=== PATIENT | female | born 1985 | race African-American/Black ===

== ENCOUNTER 2018-09-03 02:15 | Emergency (ER) | payer OTHER ==
[~2018-09-03] VITALS: Ht 167.6 cm; Wt 86.2 kg
[~2018-09-03 02:15] MED LIST: ALBUTEROL2.5 MG/0.1 INH; APAP/CODEINE ELI5 M1 OR; MEDROL DOSPAK21 TA1 PO; VENTOLIN HFA 1818 GM; VENTOLIN HFA 1818 GM INH; ZPAK PO
[2018-09-03] MEDS ORDERED: IRON325 PO (02:23)
[2018-09-03 03:23] LABS: URINE BILIRUBIN NEGATIVE (Negative); URINE BLOOD NEGATIVE (Negative); URINE CLARITY CLEAR; URINE COLOR YELLOW; URINE GLUCOSE-RANDOM* NEGATIVE (Negative); URINE KETONES NEGATIVE (Negative); URINE LEUKOCYTES-REFLEX NEGATIVE (Negative); URINE NITRITE-REFLEX NEGATIVE (Negative); URINE PROTEIN (DIPSTICK) NEGATIVE (Negative); URINE SPECIFIC GRAVITY 1.025 (1.005-1.035); URINE UROBILINOGEN 0.2 E.U./dl (0.2-1.0)
[2018-09-03 03:27] LABS: ABSOLUTE NEUTROPHILS 3.1 thou/uL (1.4-8.2); BASOPHILS 0.8 % (0.0-2.0); EOSINOPHILS 4.4 % (0.0-3.0); HEMATOCRIT 34.8 % (37.0-47.0); HEMOGLOBIN 11.2 gm/dL (12.0-15.0); MCH 28.3 pg (26.0-34.0); MCHC 32.2 g/dL (28.0-37.0); MCV 87.9 fL (80.0-100.0); MONOCYTES 8.3 % (1.0-8.0); PLATELET COUNT 208 thou/uL (150-400); POLYS 47.5 % (36.0-66.0); RBC 3.96 mil/uL (4.20-5.00); RDW 14.2 % (10.5-14.5); WBC 6.6 thou/uL (4.0-11.0)
[2018-09-03 03:29] LABS: ANION GAP 8 mmol/L (7-16); BUN 8 mg/dL (7-18); CALCIUM 8.6 mg/dL (8.5-10.1); CHLORIDE 106 mmol/L (98-107); CO2 26 mmol/L (21-32); CREATININE 0.8 mg/dL (0.6-1.0); GLUCOSE 78 mg/dL (74-106); POTASSIUM 3.5 mmol/L (3.5-5.1); SODIUM 140 mmol/L (136-145)
[2018-09-03 03:35] LABS: ALBUMIN 3.2 g/dL (3.4-5.0); DIRECT BILIRUBIN < 0.1 mg/dL (<0.1-0.3); LIPASE 96 U/L (73-393); SGOT 17 U/L (15-37); SGPT 14 U/L (30-65); TOTAL BILIRUBIN 0.3 mg/dL (<0.1-1.0); TOTAL PROTEIN 7.7 g/dL (6.4-8.2)
[2018-09-03 03:57] LABS: LARGE PLATELETS OCCASIONAL
[2018-09-03] MEDS ORDERED: KRISTALOSE20 GM PO (04:15)
[2018-09-03 04:29] VITALS: BP 117/73
== END 2018-09-03 04:30 | disposition home or self-care (01) ==
LOC: ER 02:15
PROVIDERS: Emergency Medicine
DX: K59.00 Constipation, unspecified (principal)

== ENCOUNTER 2018-11-07 23:05 | Inpatient (IN) | payer OTHER ==
[~2018-11-07] VITALS: Ht 167.6 cm; Wt 101.9 kg
[~2018-11-07 23:05] MED LIST changes: +IRON325 PO; +KRISTALOSE20 GM PO
[2018-11-07 23:06] VITALS: BP 119/79
[2018-11-08] VITALS (7 sets, daily range): BP systolic 100–123; BP diastolic 61–79
[2018-11-08 01:44] LABS: ABSOLUTE NEUTROPHILS 7.9 thou/uL (1.4-8.2); BASOPHILS 0.9 % (0.0-2.0); EOSINOPHILS 2.4 % (0.0-3.0); HEMATOCRIT 21.4 % (37.0-47.0); HEMOGLOBIN 7.1 gm/dL (12.0-15.0); MCH 28.6 pg (26.0-34.0); MCHC 33.2 g/dL (28.0-37.0); MCV 86.2 fL (80.0-100.0); MONOCYTES 5.8 % (1.0-8.0); PLATELET COUNT 404 thou/uL (150-400); POLYS 75.9 % (36.0-66.0); RBC 2.48 mil/uL (4.20-5.00); RDW 15.8 % (10.5-14.5); WBC 10.4 thou/uL (4.0-11.0)
[2018-11-08 01:58] LABS: CALCIUM 8.2 mg/dL (8.5-10.1); CREATININE 0.7 mg/dL (0.6-1.0); POTASSIUM 3.9 mmol/L (3.5-5.1)
--- NOTE | 2018-11-08 05:57 | NUR ---
PATIENT IS ALERT AND ORIENTED. PATIENT IS UP SBA. PATIENT IS ON ROOM AIR. PATIENTS PAIN IS CONTROLLED WITH PAIN MEDIATIONS. PATIENT IS RESTING COMFORTABLY IN BED. WCM. PATIENT HAS HEMOTOMA PER CT. SURGERY CONSULTED.
[2018-11-08 07:50] LABS: HEMATOCRIT 20.7 % (37.0-47.0); HEMOGLOBIN 6.8 gm/dL (12.0-15.0)
--- NOTE | 2018-11-08 10:58 | NUR ---
NEGAR sent face sheet to [facility]. NEGAR called and left message with Vicky carrillo to if she didn't receive.
--- NOTE | 2018-11-08 15:49 | NUR ---
PATIENT RECEIVED PAIN MEDICATION PER ORDERS & IS CURRENTLY USING HEAT PAD. REPORTS RELIEF OF SYMPTOMS USING PAIN INTERVENTIONS. PATIENT CURRENTLY NPO, WAITING FOR FURTHER INSTRUCTION FROM PHYSICIANS REGARDING DIET. PATIENT REFUSING FALL PRECAUTIONS, BLAIR SCORE AT 35 BUT PATIENT AMBULATES BENT OVER SLIGHTLY. ENCOURAGED PATIENT TO CALL FOR ASSIST. PATIENT VOIDING ADEQUATELY, UNABLE TO HAVE BOWEL MOVEMENT THIS SHIFT.
[2018-11-09 03:45] VITALS: BP 113/66
[2018-11-09 05:20] LABS: HEMOGLOBIN 6.7 gm/dL (12.0-15.0); MCH 29.1 pg (26.0-34.0); MCV 86.2 fL (80.0-100.0)
[2018-11-09 05:21] LABS: MCHC 33.8 g/dL (28.0-37.0); RBC 2.29 mil/uL (4.20-5.00); RDW 15.9 % (10.5-14.5); WBC 7.8 thou/uL (4.0-11.0)
[2018-11-09 05:27] LABS: HEMATOCRIT 19.8 % (37.0-47.0)
[2018-11-09 05:40] LABS: CALCIUM 8.1 mg/dL (8.5-10.1); CREATININE 0.7 mg/dL (0.6-1.0); POTASSIUM 4.3 mmol/L (3.5-5.1)
--- NOTE | 2018-11-09 06:21 | NUR ---
PT MAKING PROGRESS TOWARDS GOALS. PT RATING PAIN IN HER ABDOMEN 6/10. REPORTS 4/10 PAIN AFTER DOSING WITH MORPHINE. TAKING CLEAR LIQUIDS WITHOUT COMPLAINT.
[2018-11-09 07:29] VITALS: BP 110/63
--- NOTE | 2018-11-09 10:27 | NUR ---
SPOKE WITH PLASTIC SURGERY THIS MORNING, HE STATES HE IS UNABLE TO SEE PT. UPDATED DR BROWN.
[2018-11-09 11:12] VITALS: BP 102/60
--- NOTE | 2018-11-09 12:25 | NUR ---
PT STATES SHE FEELS THOUGH HER ABDOMEN IS PULLING MORE NOW, SHE SAYS SHE IS AFRAID HER INCISION IS GOING TO DEHIS, SHE WANTS TO HAVE SOMETHING DONE. DR LYNCH OFFICE CALLED, HE IS OUT OF TOWN, NEED TO CONSULT [facility] PHYSICIAN. PAGED DR BROWN PER PT REQUEST TO FIND OUT POC.
[2018-11-09 15:36] VITALS: BP 113/64
--- NOTE | 2018-11-09 15:59 | NUR ---
INITIAL ASSSESSMENT: SW reviewed chart and spoke with nursing and attending physician. Pt was admitted from home due to post-operative fluid collection/anemia. Pt had a tummy tuck in [place] earlier this month. Pt currently off the unit in IR for possible drain placement and culture of fluid. Per chart, pt lives at home with family. Prior to admission, pt was indpendent with ADLs. Referral sent to [facility], as pt does not have health insurance. Pt states she has a Medicaid application at home. No weekend discharge planned. SW to follow up with pt on Monday. SW is following to assist as needed with discharge planning.
--- NOTE | 2018-11-09 16:00 | NUR ---
PT DOWN TO IR FOR ABDOMINAL WALL DRAIN PLACEMENT. POC DISCUSSED WITH PT.
[2018-11-09 17:25] VITALS: BP 104/64; BP 124/67; BP 97/52
[2018-11-09 18:44] LABS: CALCIUM 8.6 mg/dL (8.5-10.1); CREATININE 0.7 mg/dL (0.6-1.0); POTASSIUM 3.8 mmol/L (3.5-5.1)
[2018-11-09 18:50] LABS: ALBUMIN 1.8 g/dL (3.4-5.0); APTT 28.6 Seconds (24.5-32.8); TOTAL BILIRUBIN 0.4 mg/dL (<0.1-1.0); TOTAL PROTEIN 6.6 g/dL (6.4-8.2)
[2018-11-09 19:20] VITALS: BP 112/72
[2018-11-10 00:20] VITALS: BP 118/75
[2018-11-10 04:25] VITALS: BP 112/63
[2018-11-10 05:29] LABS: HEMATOCRIT 23.6 % (37.0-47.0); HEMOGLOBIN 7.6 gm/dL (12.0-15.0); MCH 28.2 pg (26.0-34.0); MCHC 32.4 g/dL (28.0-37.0); MCV 87.1 fL (80.0-100.0); OBSERVED RETIC COUNT 3.38 % (0.6-2.6); RBC 2.71 mil/uL (4.20-5.00); RDW 15.7 % (10.5-14.5); WBC 7.7 thou/uL (4.0-11.0)
[2018-11-10 05:41] LABS: % SATURATION 23 % (20-39); IRON 31 ug/dL (50-170); TIBC 136 ug/dL (250-450)
[2018-11-10 05:45] LABS: ALBUMIN 1.7 g/dL (3.4-5.0); CALCIUM 8.2 mg/dL (8.5-10.1); CREATININE 0.6 mg/dL (0.6-1.0); MAGNESIUM 1.9 mg/dL (1.8-2.4); POTASSIUM 3.9 mmol/L (3.5-5.1); TOTAL BILIRUBIN 0.4 mg/dL (<0.1-1.0); TOTAL PROTEIN 6.7 g/dL (6.4-8.2)
[2018-11-10 07:00] VITALS: BP 99/55
--- NOTE | 2018-11-10 08:18 | NUR ---
PT MAKING PROGRESS TOWARDS GOALS. X3 DOSES OF MORPHINE GIVEN TO WHICH PT REPORTS PAIN DECREASES BACK TO GOAL. PT EMPTIED HER OWN DRAIN COLLECTION BAG. ENCOURAGED PT TO CALL FOR STAFF ASSISTANCE TO DO THIS. DRAINAGE IS SEROSANGUINOUS.
[2018-11-10 11:24] VITALS: BP 98/51
[2018-11-10 16:53] VITALS: BP 101/61
[2018-11-10 19:09] VITALS: BP 105/62
--- NOTE | 2018-11-10 20:21 | NUR ---
PATIENT ALERT AND ORIENTED AND COOPERATIVE WITH PLAN OF CARE. DRAIN FUNCTIONING WITH SEROSANGINOUS FLUID AND STRINGY TISSUE. PATIENT ASKED FOR IV MORPHINE ONCE TODAY FOR ABDOMINAL PAIN. SHE MOVED FROM CLEAR DIET TO REGULAR DIET. PATIENT UP TO BATHROOM WITH SBA. 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 SEVERAL FAMILY MEMBERS AT BESIDE FOR MOST OF THE AFTERNOON.
--- NOTE | 2018-11-11 04:38 | NUR ---
Patient making progress towards outcome goals. Vital signs and rhythm stable. Large amount serosanguinous drainage from drain. Fair pain control with Morphine. Low fall risks. Up adlib, gait steady.
[2018-11-11 04:39] VITALS: BP 124/79
[2018-11-11 05:13] LABS: HEMATOCRIT 21.8 % (37.0-47.0); HEMOGLOBIN 7.3 gm/dL (12.0-15.0); MCH 28.9 pg (26.0-34.0); MCHC 33.3 g/dL (28.0-37.0); MCV 86.7 fL (80.0-100.0); RBC 2.52 mil/uL (4.20-5.00); RDW 15.4 % (10.5-14.5); WBC 6.8 thou/uL (4.0-11.0)
[2018-11-11 05:31] LABS: ALBUMIN 1.6 g/dL (3.4-5.0); CALCIUM 8.1 mg/dL (8.5-10.1); CREATININE 0.6 mg/dL (0.6-1.0); POTASSIUM 4.3 mmol/L (3.5-5.1); TOTAL BILIRUBIN 0.3 mg/dL (<0.1-1.0); TOTAL PROTEIN 6.2 g/dL (6.4-8.2)
[2018-11-11 07:20] VITALS: BP 88/52
[2018-11-11 11:48] VITALS: BP 109/67
[2018-11-11 15:51] VITALS: BP 106/69
--- NOTE | 2018-11-11 17:56 | NUR ---
PATIENT HAS RESTED IN BED THROUGH THE DAY. PERSISTENT ABDOMINAL CONTROLLED APPROPRIATELY WITH PAIN MEDICATION. DRAIN TO RIGHT ABDOMEN IN TACT AND DRAINING WITH NO BLOCKAGES NOTED. WILL CONT WITH PLAN OF CARE
[2018-11-11 19:15] VITALS: BP 116/67
--- NOTE | 2018-11-12 03:04 | NUR ---
COMPLAINS THAT HER PAIN IS TIGHTNESS AROUND HER MIDDLE. SHE HAS SWELLING ON HER FLANKS. THE SKIN IS ORANGE PEEL LISA TO THE LEFT HIP AREA. SHE SAID IT FEEL LIKE THE SKIN IS PULLING HER DOWN. NEEDS REASSURANCEW AND SHE IS LOOKING FORWARD TO SEEING HER PROVIDER THIS AM. THE DRAIN TO HER RIGHT SIDE CONTINUES TO DRAIN OUT PINKISH FLUID. CAREPLAN REVIEWED.
[2018-11-12 04:35] VITALS: BP 99/58
[2018-11-12 05:50] LABS: HEMATOCRIT 23.2 % (37.0-47.0); HEMOGLOBIN 7.7 gm/dL (12.0-15.0); MCH 28.7 pg (26.0-34.0); MCHC 33.1 g/dL (28.0-37.0); MCV 86.9 fL (80.0-100.0); RBC 2.66 mil/uL (4.20-5.00); RDW 15.9 % (10.5-14.5); WBC 6.5 thou/uL (4.0-11.0)
--- NOTE | 2018-11-12 06:00 | NUR ---
PAIN HAS BEEN AN ONGOING CONSTANT FOR HER TONIGHT, NO CHANGE FROM PREVIOUS. SHE IS ANXIOUS ABOUT THE FACT THAT SHE IS UNCOMFORTABLE AND UNSURE OF THE REASON FOR THE AMOUNT OF FLUIDS IN HER ABDOMEN. MORPHINE PROVIDES SOME RELIEF/ CONTROL OF HER PAIN AND DICOMFORT.
[2018-11-12 06:07] LABS: ALBUMIN 1.7 g/dL (3.4-5.0); CALCIUM 8.3 mg/dL (8.5-10.1); CREATININE 0.6 mg/dL (0.6-1.0); POTASSIUM 3.8 mmol/L (3.5-5.1); TOTAL BILIRUBIN 0.5 mg/dL (<0.1-1.0); TOTAL PROTEIN 6.5 g/dL (6.4-8.2)
[2018-11-12 08:23] VITALS: BP 107/61
[2018-11-12] MEDS ORDERED: NORCO 5-325 TA1 EAC1 PO (08:36)
[2018-11-12 11:10] VITALS: BP 106/67
--- NOTE | 2018-11-12 13:09 | NUR ---
DISCHARGE NOTE: SW reviewed chart and spoke with nursing and attending physician. Pt did have abdominal wall drain placed in IR on Monday. Pt is medically stable for discharge home today. SW met with pt at bedside to discuss discharge plan. Pt agreeable with plan. Pt states she did meet with [employer] regarding Medicaid application. Pt provided with Health Resource Guide and prescription assistance info. Pt will have transportation home. No SW discharge needs identified at this time, but is available to assist should needs arise.
[2018-11-12 14:22] VITALS: BP 106/67
== END 2018-11-12 15:20 | disposition home or self-care (01) | DRG 921 ==
LOC: ER 23:05 → 3W 11-08 03:55 → EROBS 11-08 03:55 → 3W 11-08 04:11
PROVIDERS: Emergency Medicine; Hospitalist; Internal Medicine Geriatric Medicine; Nurse Practitioner Family; ADMIT Internal Medicine
PROC: 0W9F3ZZ Drainage of Abdominal Wall, Percutaneous Approach (ICD-10-PCS; principal; 2018-11-09)
PROC: 30233N1 Transfusion of Nonautologous Red Blood Cells into Peripheral Vein, Percutaneous Approach (ICD-10-PCS; principal; 2018-11-09)
DX: L76.33 Postprocedural seroma of skin and subcutaneous tissue following a dermatologic procedure (principal); D64.9 Anemia, unspecified; K59.00 Constipation, unspecified; G89.18 Other acute postprocedural pain; J45.909 Unspecified asthma, uncomplicated; Y83.8 Other surgical procedures as the cause of abnormal reaction of the patient, or of later complication, without mention of misadventure at the time of the procedure; Y92.89 Other specified places as the place of occurrence of the external cause; Z98.84 Bariatric surgery status
CPT/HCPCS: 10879

== ENCOUNTER 2018-12-23 05:15 | Emergency (ER) | payer OTHER ==
[~2018-12-23] VITALS: Ht 167.6 cm; Wt 86.2 kg
[~2018-12-23 05:15] MED LIST changes: +NORCO 5-325 TA1 EAC1 PO
[2018-12-23 05:40] LABS: URINE BILIRUBIN NEGATIVE (Negative); URINE BLOOD NEGATIVE (Negative); URINE CLARITY CLEAR; URINE COLOR YELLOW; URINE GLUCOSE-RANDOM* NEGATIVE (Negative); URINE KETONES NEGATIVE (Negative); URINE LEUKOCYTES-REFLEX NEGATIVE (Negative); URINE NITRITE-REFLEX NEGATIVE (Negative); URINE PROTEIN (DIPSTICK) NEGATIVE (Negative)
[2018-12-23 05:41] LABS: ABSOLUTE NEUTROPHILS 3.8 thou/uL (1.4-8.2); BASOPHILS 1.4 % (0.0-2.0); EOSINOPHILS 2.8 % (0.0-3.0); HEMATOCRIT 32.8 % (37.0-47.0); HEMOGLOBIN 10.4 gm/dL (12.0-15.0); MCH 28.7 pg (26.0-34.0); MCHC 31.7 g/dL (28.0-37.0); MCV 90.5 fL (80.0-100.0); MONOCYTES 7.8 % (1.0-8.0); PLATELET COUNT 232 thou/uL (150-400); RBC 3.62 mil/uL (4.20-5.00); RDW 14.4 % (10.5-14.5); WBC 7.2 thou/uL (4.0-11.0)
[2018-12-23 05:46] LABS: CALCIUM 8.7 mg/dL (8.5-10.1); CREATININE 0.7 mg/dL (0.6-1.0); POTASSIUM 3.5 mmol/L (3.5-5.1)
[2018-12-23 05:52] LABS: ALBUMIN 3.1 g/dL (3.4-5.0); TOTAL BILIRUBIN 0.2 mg/dL (<0.1-1.0); TOTAL PROTEIN 8.4 g/dL (6.4-8.2)
[2018-12-23 08:54] VITALS: BP 106/60
[2018-12-23] MEDS ORDERED: BENTYL 20 MG TA20 M1 PO (08:56)
[2018-12-23] MEDS ORDERED: IBUPROFEN 600600 M1 PO (08:56)
== END 2018-12-23 09:52 | disposition home or self-care (01) ==
LOC: ER 05:15
PROVIDERS: Emergency Medicine
DX: K80.20 Calculus of gallbladder without cholecystitis without obstruction (principal); J45.909 Unspecified asthma, uncomplicated; Z86.2 Personal history of diseases of the blood and blood-forming organs and certain disorders involving the immune mechanism

== ENCOUNTER 2021-04-08 15:54 | Emergency (ER) | payer OTHER ==
[~2021-04-08] VITALS: Ht 180.3 cm; Wt 90.7 kg
[~2021-04-08 15:54] MED LIST changes: +BENTYL 20 MG TA20 M1 PO; +IBUPROFEN 600600 M1 PO
[2021-04-08 17:58] LABS: HEMATOCRIT 31.3 % (37.0-47.0); HEMOGLOBIN 10.1 gm/dL (12.0-15.0); MCH 28.1 pg (26.0-34.0); MCHC 32.2 g/dL (28.0-37.0); RBC 3.59 mil/uL (4.20-5.00); RDW 15.6 % (10.5-14.5); WBC 6.2 thou/uL (4.0-11.0)
[2021-04-08 19:59] VITALS: BP 123/77
== END 2021-04-08 20:03 | disposition home or self-care (01) ==
LOC: ER 15:54
PROVIDERS: Student in an Organized Health Care Education/Training Program
DX: O03.9 Complete or unspecified spontaneous abortion without complication (principal); J45.909 Unspecified asthma, uncomplicated; Z79.51 Long term (current) use of inhaled steroids; Z79.899 Other long term (current) drug therapy